=== PATIENT | male | born 1990 | race African-American/Black ===

== ENCOUNTER 2018-05-07 13:29 | Emergency (ER) | payer SELFPAY ==
--- NOTE | 2018-05-07 13:58 | EKG ---
Test Date: 2018-05-07 Test Time: 13:38:32 Change Control Analyst: YOVANA MEASUREMENT RESULTS: Intervals: Rate: 81 OK: 162 QRSD: 88 QT: 336 QTc: 390 [place]: P: 64 OK: 162 QRS: 78 T: 57 INTERPRETIVE STATEMENTS: Normal sinus rhythm Possible Acute pericarditis or early repolarization abnormality Abnormal ECG Compared to ECG 10/25/2002 09:46:00 no significant change from previous ECG Electronically Signed On 05-07-18 13:58:25 CDT by Ravi Strange
[2018-05-07 15:30] LABS: Absolute Lymphocytes (CBC) 1.9 K/uL (0.7-4.9); Absolute Monocytes 0.5 K/uL (0.1-1.3); Absolute Neutrophil 2.2 K/uL (1.8-8.0); Basophils % 0.8 % (0-1.3); Hematocrit 47.7 % (39.6-49.0); Lymphocytes % 37.4 % (15.3-44.8); MCH 33.3 pg (27.0-35.0); MCV 97.6 fL (80-100); MPV 10.4 fL (7.6-11.3); Monocytes % 10.1 % (3.3-12.3); RBC Red Blood Cell Count 4.89 M/uL (4.33-5.43)
[2018-05-07 15:54] LABS: Urine Blood NEGATIVE (NEG); Urine Glucose NEGATIVE (NEG); Urine Protein TRACE (NEG); Urine Specific Gravity >1.030 (1.005-1.030)
[2018-05-07 16:02] LABS: Potassium 4.3 mmol/L (3.5-5.1)
--- NOTE | 2018-05-07 16:02 | RAD REPORT ---
EXAM DESCRIPTION: RAD - Chest Single View - 05/07/2018 3:42 pm CLINICAL HISTORY: CHEST PAIN Chest pain. COMPARISON: CHEST PA AND LAT 2 VIEW dated 05/09/2013 FINDINGS: Portable technique limits examination quality. The lungs are grossly clear. The heart is normal in size. No displaced fractures. IMPRESSION: No acute intrathoracic process suspected.
--- NOTE | 2018-05-07 16:24 | EDPHYS ---
Physician Documentation [facility] Name: Amrik Dai Age: 27 yrs Sex: Male : 1990 Arrival Date: 05/07/2018 Time: 13:32 Bed 18 Private MD: ED Physician Ismael Thayer HPI: 05/07 15:32 This 27 yrs old Black Male presents to ER via Ambulatory with complaints of Chest Pain. jr8 15:32 The patient or guardian reports chest pain that is located primarily in the anterior jr8 chest wall, right. The pain radiates to the right scapula. Associated signs and symptoms: The patient has no apparent associated signs or symptoms. The chest pain is described as sharp. Duration: The patient or guardian reports multiple episodes, that are intermittent, that wax and wane. Modifying factors: The symptoms are alleviated by nothing. the symptoms are aggravated by nothing. Severity of pain: At its worst the pain was moderate. The patient has not experienced similar symptoms in the past. The patient has not recently seen a physician. Historical: - Allergies: 13:37 No Known Allergies; hj - Home Meds: 13:37 None [Active]; hj - PMHx: 13:37 None; hj - PSHx: 13:37 None; hj - Immunization history:: Adult Immunizations up to date. - Social history:: Smoking status: Patient uses tobacco products, smokes one pack cigarettes per day. Patient uses alcohol, on a daily basis. - Ebola Screening: : Patient negative for fever greater than or equal to 101.5 degrees Fahrenheit, and additional compatible Ebola Virus Disease symptoms Patient denies exposure to infectious person Patient denies travel to an Ebola-affected area in the 21 days before illness onset. ROS: 15:32 Eyes: Negative for injury, pain, redness, and discharge, ENT: Negative for injury, jr8 pain, and discharge, Neck: Negative for injury, pain, and swelling, Respiratory: Negative for shortness of breath, cough, wheezing, and pleuritic chest pain, Abdomen/GI: Negative for abdominal pain, nausea, vomiting, diarrhea, and constipation, Back: Negative for injury and pain, MS/Extremity: Negative for injury and deformity, Skin: Negative for injury, rash, and discoloration, Neuro: Negative for headache, weakness, numbness, tingling, and seizure. 15:32 Cardiovascular: Positive for chest pain, Negative for edema, orthopnea, palpitations, paroxysmal nocturnal dyspnea. Exam: 15:32 Eyes: Pupils equal round and reactive to light, extra-ocular motions intact. Lids and jr8 lashes normal. Conjunctiva and sclera are non-icteric and not injected. Cornea within normal limits. Periorbital areas with no swelling, redness, or edema. ENT: Nares patent. No nasal discharge, no septal abnormalities noted. Tympanic membranes are normal and external auditory canals are clear. Oropharynx with no redness, swelling, or masses, exudates, or evidence of obstruction, uvula midline. Mucous membranes moist. Neck: Trachea midline, no thyromegaly or masses palpated, and no cervical lymphadenopathy. Supple, full range of motion without nuchal rigidity, or vertebral point tenderness. No Meningismus. Chest/axilla: Normal chest wall appearance and motion. Nontender with no deformity. No lesions are appreciated. Cardiovascular: Regular rate and rhythm with a normal S1 and S2. No gallops, murmurs, or rubs. Normal PMI, no JVD. No pulse deficits. Respiratory: Lungs have equal breath sounds bilaterally, clear to auscultation and percussion. No rales, rhonchi or wheezes noted. No increased work of breathing, no retractions or nasal flaring. Abdomen/GI: Soft, non-tender, with normal bowel sounds. No distension or tympany. No guarding or rebound. No evidence of tenderness throughout. Back: No spinal tenderness. No costovertebral tenderness. Full range of motion. Skin: Warm, dry with normal turgor. Normal color with no rashes, no lesions, and no evidence of cellulitis. MS/ Extremity: Pulses equal, no cyanosis. Neurovascular intact. Full, normal range of motion. Neuro: Awake and alert, GCS 15, oriented to person, place, time, and situation. Cranial nerves II-XII grossly intact. Motor strength 5/5 in all extremities. Sensory grossly intact. Cerebellar exam normal. Normal gait. Vital Signs: 13:38 BP 133 / 80; Pulse 85; Resp 18; Temp 98.1(O); Pulse Ox 100% on R/A; Weight 68.04 kg; hj Height 5 ft. 9 in. (175.26 cm); Pain 8/10; 15:42 BP 130 / 74; Pulse 63; Resp 18; Pulse Ox 97% on R/A; ae1 16:47 BP 129 / 81; Pulse 60; Resp 18; Pulse Ox 100% on R/A; ae1 13:38 Body Mass Index 22.15 (68.04 kg, 175.26 cm) hj MDM: 15:04 Patient medically screened. jr8 16:16 Differential diagnosis: abnormal EKG, acute myocardial infarction, acute pericarditis, jr8 anxiety, chest wall pain, cholecystitis, Cholelithiasis costochondritis, esophagitis, gastritis, gastroesophageal reflux disease (GERD), pancreatitis, peptic ulcer disease, pleurisy, pneumonia, pneumothorax, pulmonary embolus, stable angina, thoracic aortic disection, unstable angina. Data reviewed: vital signs, nurses notes, lab test result(s), EKG, radiologic studies, plain films, and as a result, I will discharge patient. Data interpreted: Pulse oximetry: on room air is 97 %. Interpretation: normal. Counseling: I had a detailed discussion with the patient and/or guardian regarding: the historical points, exam findings, and any diagnostic results supporting the discharge/admit diagnosis, lab results, radiology results, the need for outpatient follow up, a family practitioner, to return to the emergency department if symptoms worsen or persist or if there are any questions or concerns that arise at home. 16:16 ED course: Patients EKG suggestive of pericarditis. Patient has the sharp chest pain jr8 but worse with sitting up and more relieved with laying down. No ESR elevation. Could be pericarditis vs musculoskeletal. Will put on NSAID and was told to follow up. Pepcid daily and not to take it more then 2 weeks. . 05/07 15:11 Order name: CBC with Diff; Complete Time: 15:43 [facility] 05/07 15:11 Order name: Basic Metabolic Panel; Complete Time: 16:03 [facility] 05/07 15:11 Order name: Troponin (emerg Dept Use Only); Complete Time: 16:16 8 05/07 15:12 Order name: ESR [facility] 05/07 15:12 Order name: Sedimentation Rate, [place]; Complete Time: 15:59 EDMS 05/07 15:49 Order name: Urine Dipstick--Ancillary (enter results); Complete Time: 15:56 bd 05/07 13:51 Order name: EKG; Complete Time: 13:51 hj 05/07 15:11 Order name: XRAY Chest (1 view); Complete Time: 16:03 jr8 05/07 15:11 Order name: IV; Complete Time: 15:19 jr8 Administered Medications: No medications were administered Disposition: 05/08 07:26 Co-signature as Attending Physician, Ismael Thayer MD I agree with the assessment and louann plan of care. Disposition: 05/07/18 16:23 Discharged to Home. Impression: Chest pain, unspecified. - Condition is Stable. - Discharge Instructions: Nonspecific Chest Pain, Chest Wall Pain, Pericarditis. - Prescriptions for Ibuprofen 800 mg Oral Tablet - take 1 tablet by ORAL route every 8 hours As needed take with food; 30 tablet. - Medication Reconciliation Form, Thank You Letter, Antibiotic Education, Prescription Opioid Use form. - Follow up: Private Physician; When: 7 - 10 days; Reason: Recheck today's complaints, Continuance of care, Re-evaluation by your physician. - Problem is new. - Symptoms have improved. Signatures: Dispatcher [employer] EDOR Ismael Thayer MD MD cha Roszak, Josh, PA PA jr8 Jerry Sutherland RN RN Hilton Bocanegra RN RN ae1 Corrections: (The following items were deleted from the chart) 05/07 16:47 16:23 05/07/2018 16:23 Discharged to Home. Impression: Chest pain, unspecified. ae1 Condition is Stable. Forms are Medication Reconciliation Form, Thank You Letter, Antibiotic Education, Prescription Opioid Use. Follow up: Private Physician; When: 7 - 10 days; Reason: Recheck today's complaints, Continuance of care, Re-evaluation by your physician. Problem is new. Symptoms have improved. jr8
--- NOTE | 2018-05-07 16:24 | ER ---
Nurse's Notes [facility] Name: Amrik Dai Age: 27 yrs Sex: Male : 1990 Arrival Date: 05/07/2018 Time: 13:32 Bed 18 Private MD: Diagnosis: Chest pain, unspecified Presentation: 05/07 13:35 Presenting complaint: Patient states: i have a bad pain on the ride side of my chest hj started 4 days ago; denies SOB; denies fever and chills; denies nausea and vomiting;. Transition of care: patient was not received from another setting of care. Onset of symptoms was May 07, 2018. Risk Assessment: Do you want to hurt yourself or someone else? Patient reports no desire to harm self or others. Initial Sepsis Screen: Does the patient meet any 2 criteria? No. Patient's initial sepsis screen is negative. Does the patient have a suspected source of infection? No. Patient's initial sepsis screen is negative. Care prior to arrival: None. 13:35 Method Of Arrival: Ambulatory 13:35 Acuity: CASSIDY 3 hj Triage Assessment: 13:37 General: Appears in no apparent distress. uncomfortable, Behavior is calm, cooperative, hj appropriate for age. Pain: Complains of pain in chest. Cardiovascular: Reports chest pain, Heart tones S1 S2 Capillary refill < 3 seconds Patient's skin is warm and dry. Historical: - Allergies: 13:37 No Known Allergies; hj - Home Meds: 13:37 None [Active]; hj - PMHx: 13:37 None; hj - PSHx: 13:37 None; hj - Immunization history:: Adult Immunizations up to date. - Social history:: Smoking status: Patient uses tobacco products, smokes one pack cigarettes per day. Patient uses alcohol, on a daily basis. - Ebola Screening: : Patient negative for fever greater than or equal to 101.5 degrees Fahrenheit, and additional compatible Ebola Virus Disease symptoms Patient denies exposure to infectious person Patient denies travel to an Ebola-affected area in the 21 days before illness onset. Screenin:37 Abuse screen: Denies threats or abuse. Denies injuries from another. Nutritional hj screening: No deficits noted. Tuberculosis screening: No symptoms or risk factors identified. Fall Risk None identified. Assessment: 13:38 Pain: Pain does not radiate. Pain began 2-3 days ago. hj 15:41 General: Appears in no apparent distress. comfortable, well groomed, Behavior is calm, ae1 cooperative. Pain: Complains of pain in chest. Neuro: Level of Consciousness is awake, alert, obeys commands, Oriented to person, place, time, situation. Cardiovascular: Heart tones S1 S2 present Patient's skin is warm and dry. Respiratory: Airway is patent Respiratory effort is even, unlabored, Respiratory pattern is regular, symmetrical, Breath sounds are clear bilaterally. GI: No signs and/or symptoms were reported involving the gastrointestinal system. GI: Abdomen is flat, non-distended. : No signs and/or symptoms were reported regarding the genitourinary system. EENT: No signs and/or symptoms were reported regarding the EENT system. Derm: Skin is normal. Musculoskeletal: No signs and/or symptoms reported regarding the musculoskeletal system. 15:46 Reassessment: Patient appears in no apparent distress at this time. Patient and/or ae1 family updated on plan of care and expected duration. Pain level reassessed. Patient states feeling better. Vital Signs: 13:38 BP 133 / 80; Pulse 85; Resp 18; Temp 98.1(O); Pulse Ox 100% on R/A; Weight 68.04 kg; hj Height 5 ft. 9 in. (175.26 cm); Pain 8/10; 15:42 BP 130 / 74; Pulse 63; Resp 18; Pulse Ox 97% on R/A; ae1 16:47 BP 129 / 81; Pulse 60; Resp 18; Pulse Ox 100% on R/A; ae1 13:38 Body Mass Index 22.15 (68.04 kg, 175.26 cm) ED Course: 13:32 Patient arrived in ED. rg4 13:37 Triage completed. hj 13:38 Arm band placed on left wrist. hj 13:38 wine consultant on. Pulse ox on. NIBP on. hj 13:38 Patient has correct armband on for positive identification. Placed in gown. Bed in low hj position. Call light in reach. 13:38 Patient maintains SpO2 saturation greater than 95% on room air. hj 15:03 Donavon Guerra PA is PHCP. jr8 15:04 Ismael Thayer MD is Attending Physician. jr8 15:08 Initial lab(s) drawn, by me, sent to lab. Inserted saline lock: 20 gauge in right ag antecubital area, using aseptic technique. Blood collected. 15:19 Hilton Bocanegra, RN is Primary Nurse. ae1 15:43 XRAY Chest (1 view) In Process Unspecified. EDMS 16:46 No provider procedures requiring assistance completed. IV discontinued, intact, ae1 bleeding controlled, No redness/swelling at site. Pressure dressing applied. Administered Medications: No medications were administered Outcome: 16:23 Discharge ordered by . ajay 16:46 Discharged to home ambulatory. ae1 16:46 Condition: stable 16:46 Discharge instructions given to patient, Instructed on discharge instructions, follow up and referral plans. medication usage, Demonstrated understanding of instructions, Prescriptions given X 1. 16:47 Patient left the ED. ae1 Signatures: Dispatcher [employer] EDVA Donavon Guerra PA PA jr8 Lilly Will Henry, RN RN Hilton Bocanegra, RN RN ae1 Clara Miller rg4
== END 2018-05-07 16:47 | disposition home or self-care (01) ==
LOC: ER 13:29
DX: R07.9 Chest pain, unspecified (principal); F17.210 Nicotine dependence, cigarettes, uncomplicated
CPT/HCPCS: 36415; 71045; 80048; 81003; 84484; 85025; 85652; 93005; 99285